=== PATIENT | female | born 1965 | race African-American/Black ===

== ENCOUNTER 2023-10-20 22:10 | Emergency (ER) | payer BC ==
[~2023-10-20] VITALS: Ht 175.3 cm; Wt 68.0 kg
[2023-10-20 22:14] VITALS: O2SAT 100
== END 2023-10-20 23:12 | disposition left against medical advice (07) ==
LOC: ER 22:12
DX: I49.5 Sick sinus syndrome (principal); R07.89 Other chest pain; R00.2 Palpitations
CPT/HCPCS: A4606; A4663